=== PATIENT | female | born 1965 ===

== ENCOUNTER 2018-02-25 13:00 | Emergency (ER) | payer SELFPAY ==
[~2018-02-25] VITALS: Ht 162.6 cm; Wt 86.0 kg
[2018-02-25] MEDS ORDERED: ACETAMINOPHEN 325MG TABLET PO NR (14:30)
[2018-02-25 14:47] VITALS: BP 104/74
== END 2018-02-25 15:40 | disposition home or self-care (01) ==
LOC: ER 13:00
DX: F43.20 Adjustment disorder, unspecified (principal)
CPT/HCPCS: 93005; 99283; Z7610